=== PATIENT | female | born 1970 | race Caucasian/White ===

== ENCOUNTER → 2020-06-07 | Outpatient (CLI) | payer BC ==
--- NOTE | 2020-06-07 10:17 | KCIC ---
L-spine 4 views INDICATION: Chronic low back pain TECHNIQUE: Standing AP, standing neutral lateral, standing lateral extension and standing lateral flexion views of the lumbar spine were obtained. FINDINGS: Hypoplastic ribs at T12. Five lumbar type vertebrae. Alignment shows subtle rightward lateral listhesis of L3 on L4 of 2 to 3 mm. No anterolisthesis or retrolisthesis. There is mild straightening of the normal lumbar lordosis in the neutral position. No listhesis is shown with extension. There is subtle retrolisthesis of L4 on L5 suggested on flexion with limited range of motion motion. The bones are well-mineralized and normal in height. There is moderate disc space loss of height at L4-L5, and mild disc space loss of height at L5-S1. Minimal facet hypertrophy is present at L3-L4 through L5-S1. No bony central canal or foraminal stenosis is appreciated. IMPRESSION: Limited range of motion in the lumbar spine with possible minimal retrolisthesis of L4 on L5 with flexion. Electronically signed by: Zeferino Payton MD (06/07/2020 10:14 AM) [id number]
== END | disposition home or self-care (01) ==
LOC: KCIC 08:08
PROVIDERS: ATTEND Nurse Practitioner Family
DX: M51.37 Other intervertebral disc degeneration, lumbosacral region (principal); M43.16 Spondylolisthesis, lumbar region; M40.46 Postural lordosis, lumbar region; M46.97 Unspecified inflammatory spondylopathy, lumbosacral region; G89.29 Other chronic pain
CPT/HCPCS: 72110